=== PATIENT | male | born 1950 | race Caucasian/White ===

== ENCOUNTER → 2021-06-05 | Day surgery (SDC) | payer OTHER ==
[~2021-06-05] MED LIST: ACETAMINOPHEN 500 MG TABLET PO PRN; ALEN70TA71 PO; BALANCED SALT IRRIG SOLN NO.2 500 ML IO ONE; BENZONATATE 100 MG CAPSULE. PO PRN; BRIMONIDINE 0.2% OPHTH SOLUTION 5ML BOTTLE. OS ONE; CEFUROXIME OPHTH 4 MG/0.4 ML SYRINGE. OS ONE; CHONDROIT-SOD-HYALURONATE KIT. OS ONE; IBUPROFEN 200 MG TABLET PO PRN; IPRATRPIUM/ALBUTEROL 0.5/2.5MG 3 ML NEBU. NEB PRN; IV RINGERS SOLUTION,LACTATED 1,000 ML IV SCH; LATA7.5D OU; LIDO/EPI IN BSS OPHTH 2.7 ML SYRINGE. OS ONE; LIDOCAINE 2% JELLY 6ML IN APPLICATOR. ONE; MIDAZOLAM HCL PF 2 MG/2 ML VIAL. IV ONE; MIDAZOLAM HCL PF 2 MG/2 ML VIAL. ONE; ONDANSETRON PF 4 MG/2 ML VIAL. IV PRN; PHENYLEPHRINE 10% OPHTH SOLUTION 5ML BOTTLE. OS PRN; POVIDONE-IODINE 5% OPHTH SOLUTION 30ML BOTTLE. ONE; POVIDONE-IODINE 5% OPHTH SOLUTION 30ML BOTTLE. OS ONE; POVIDONE-IODINE 5% OPHTH SOLUTION 30ML BOTTLE. OS PRN; PROPARACAINE 0.5% OPHTH SOLUTION 15ML BOTTLE. OS ONE; PROPARACAINE 0.5% OPHTH SOLUTION 15ML BOTTLE. OS PRN; TRYPAN BLUE 0.06% INTRAOCULAR 0.5 ML SYRINGE. IO ONE; prednisoLONE ACETATE 1% OPHTH SUSPENSION 5ML BOTTLE. OS ONE
[2021-06-05] MEDS: TROPICAMIDE 1% OPHTH SOLUTION 15ML BOTTLE. OS SCH ×3 (11:22→11:31)
[2021-06-05] MEDS: KETOROLAC TROMETHAMINE 0.5% OPHTH SOLUTION BOTTLE. OS SCH ×2 (11:22→11:27)
[2021-06-05] MEDS: PHENYLEPHRINE 2.5% OPHTH SOLUTION 2ML BOTTLE. OS SCH ×3 (11:22→11:31)
[2021-06-05] MEDS: TOBRAMYCIN 0.3% OPHTH SOLUTION 5ML BOTTLE. OS SCH ×2 (11:22→11:27)
--- NOTE | 2021-06-05 13:06 | PDOC4 ---
SURGEON: Eva Andrews MD Date of Procedure: 06/05/21 PREOP Diagnosis Visually significant cataract: Left Eye OS POSTOP Diagnosis Same PROCEDURE: Phaco w/ posterior chamber IOL: Left Eye OS ANESTHESIA Deep forniceal periocular 2% Lidocaine jelly Sugey/retro bulbar block with 2% Lidocaine with 0.5% Marcaine DESCRIPTION OF PROCEDURE The risks, benefits, and alternatives were discussed with the patient who elected to proceed. Informed consent was obtained in writing and placed in the chart After anesthetizing the eye topically, the patient was taken to the operating room, and the operative eye was prepped and draped in the usual sterile fashion for ocular surgery. A wire lid speculum was placed. A 1-mm clear corneal paracentesis incision was created with the side-port blade at a position three o'clock hours clockwise from the temporal cornea. Then, 1% non-preserved Lidocaine with epinephrine was injected into the anterior chamber followed by viscoelastic. Cotton-tipped applicators were used to stabilize the globe, and a 2.4 mm keratome was used to create a self-sealing incision in clear cornea at the temporal limbus. The Utrata forceps were used to create a continuous curvilinear capsulorrhexis. Balanced saline solution was injected via cannula beneath the capsulorrhexis edge to hydrodissect the lens nucleus and cortex from the lens capsule. The phacoemulsification handpiece and a chopping instrument were then used to remove the lens nucleus. The remaining epinuclear material and cortex were removed with the irrigation/aspiration handpiece. Visc oelastic was used to re-inflate the lens capsule, and the intraocular lens was injected directly into the capsular bag. The corneal wound edges were hydrated with balanced salt solution on a cannula and the irrigation/aspiration handpiece was used to extract the remaining viscoelastic. Cefuroxime 0.1mg/ml / Vigamox 0.5% was injected into the anterior chamber intracamerally. The wounds were inspected and found to be watertight at an appropriate intraocular pressure. Topical antibiotic drops were placed on the corneal surface. LRI: No If Yes, Number [] [place] [] Length [] degrees Depth [] microns Incision [place]: 180 Toric Lens [place] [] Patch/shield with Maxitrol/Tobradex/Erythromycin ointment: Yes No Co-managed patients/postop examination stable for co-management with referring doctor. EBL EBL: None SPECIMANS COLLECTED Specimens Collected: None EVA ANDREWS MD Jun 05, 2021 13:06
[2021-06-05 13:18] VITALS: BP 136/83
== END | disposition home or self-care (01) ==
LOC: SURG 11:03
PROVIDERS: ATTEND Ophthalmology
DX: H25.12 Age-related nuclear cataract, left eye (principal); Z98.890 Other specified postprocedural states; Z98.52 Vasectomy status; Z79.899 Other long term (current) drug therapy
CPT/HCPCS: 66984; J2250; V2632

== ENCOUNTER → 2021-08-21 | Day surgery (SDC) | payer OTHER ==
[~2021-08-21] MED LIST changes: +BRIMONIDINE 0.2% OPHTH SOLUTION 5ML BOTTLE. OD ONE; -BRIMONIDINE 0.2% OPHTH SOLUTION 5ML BOTTLE. OS ONE; +CEFUROXIME OPHTH 4 MG/0.4 ML SYRINGE. OD ONE; -CEFUROXIME OPHTH 4 MG/0.4 ML SYRINGE. OS ONE; +CHONDROIT-SOD-HYALURONATE KIT. OD ONE; -CHONDROIT-SOD-HYALURONATE KIT. OS ONE; +LIDO/EPI IN BSS OPHTH 2.7 ML SYRINGE. OD ONE; -LIDO/EPI IN BSS OPHTH 2.7 ML SYRINGE. OS ONE; -LIDOCAINE 2% JELLY 6ML IN APPLICATOR. ONE; +PHENYLEPHRINE 10% OPHTH SOLUTION 5ML BOTTLE. OD PRN; -PHENYLEPHRINE 10% OPHTH SOLUTION 5ML BOTTLE. OS PRN; +POVIDONE-IODINE 5% OPHTH SOLUTION 30ML BOTTLE. OD ONE; +POVIDONE-IODINE 5% OPHTH SOLUTION 30ML BOTTLE. OD PRN; -POVIDONE-IODINE 5% OPHTH SOLUTION 30ML BOTTLE. ONE; -POVIDONE-IODINE 5% OPHTH SOLUTION 30ML BOTTLE. OS ONE; -POVIDONE-IODINE 5% OPHTH SOLUTION 30ML BOTTLE. OS PRN; +PROPARACAINE 0.5% OPHTH SOLUTION 15ML BOTTLE. OD ONE; +PROPARACAINE 0.5% OPHTH SOLUTION 15ML BOTTLE. OD PRN; -PROPARACAINE 0.5% OPHTH SOLUTION 15ML BOTTLE. OS ONE; -PROPARACAINE 0.5% OPHTH SOLUTION 15ML BOTTLE. OS PRN; -TRYPAN BLUE 0.06% INTRAOCULAR 0.5 ML SYRINGE. IO ONE; +prednisoLONE ACETATE 1% OPHTH SUSPENSION 5ML BOTTLE. OD ONE; -prednisoLONE ACETATE 1% OPHTH SUSPENSION 5ML BOTTLE. OS ONE
[2021-08-21] MEDS: TOBRAMYCIN 0.3% OPHTH SOLUTION 5ML BOTTLE. OD SCH ×2 (09:02→09:05)
[2021-08-21] MEDS: TROPICAMIDE 1% OPHTH SOLUTION 15ML BOTTLE. OD SCH ×3 (09:02→09:11)
[2021-08-21] MEDS: KETOROLAC TROMETHAMINE 0.5% OPHTH SOLUTION BOTTLE. OD SCH ×2 (09:02→09:05)
[2021-08-21] MEDS: PHENYLEPHRINE 2.5% OPHTH SOLUTION 2ML BOTTLE. OD SCH ×3 (09:02→09:11)
--- NOTE | 2021-08-21 10:37 | PDOC4 ---
SURGEON: Eva Andrews MD Date of Procedure: 08/21/21 PREOP Diagnosis Visually significant cataract: Right Eye OD POSTOP Diagnosis Same PROCEDURE: Phaco w/ posterior chamber IOL: Right Eye OD ANESTHESIA Deep forniceal periocular 2% Lidocaine jelly Sugey/retro bulbar block with 2% Lidocaine with 0.5% Marcaine DESCRIPTION OF PROCEDURE The risks, benefits, and alternatives were discussed with the patient who elected to proceed. Informed consent was obtained in writing and placed in the chart After anesthetizing the eye topically, the patient was taken to the operating room, and the operative eye was prepped and draped in the usual sterile fashion for ocular surgery. A wire lid speculum was placed. A 1-mm clear corneal paracentesis incision was created with the side-port blade at a position three o'clock hours clockwise from the temporal cornea. Then, 1% non-preserved Lidocaine with epinephrine was injected into the anterior chamber followed by viscoelastic. Cotton-tipped applicators were used to stabilize the globe, and a 2.4 mm keratome was used to create a self-sealing incision in clear cornea at the temporal limbus. The Utrata forceps were used to create a continuous curvilinear capsulorrhexis. Balanced saline solution was injected via cannula beneath the capsulorrhexis edge to hydrodissect the lens nucleus and cortex from the lens capsule. The phacoemulsification handpiece and a chopping instrument were then used to remove the lens nucleus. The remaining epinuclear material and cortex were removed with the irrigation/aspiration handpiece. V iscoelastic was used to re-inflate the lens capsule, and the intraocular lens was injected directly into the capsular bag. The corneal wound edges were hydrated with balanced salt solution on a cannula and the irrigation/aspiration handpiece was used to extract the remaining viscoelastic. Cefuroxime 0.1mg/ml / Vigamox 0.5% was injected into the anterior chamber intracamerally. The wounds were inspected and found to be watertight at an appropriate intraocular pressure. Topical antibiotic drops were placed on the corneal surface. LRI: No If Yes, Number [] [place] [] Length [] degrees Depth [] microns Incision [place]: 180 Toric Lens [place] [] Patch/shield with Maxitrol/Tobradex/Erythromycin ointment: Yes No Co-managed patients/postop examination stable for co-management with referring doctor. EBL EBL: None SPECIMANS COLLECTED Specimens Collected: None EVA ANDREWS MD Aug 21, 2021 10:37
[2021-08-21 10:38] VITALS: BP 147/94
== END | disposition home or self-care (01) ==
LOC: SURG 08:42
PROVIDERS: ATTEND Ophthalmology
DX: H25.89 Other age-related cataract (principal); Z79.899 Other long term (current) drug therapy; Z72.89 Other problems related to lifestyle; Z98.890 Other specified postprocedural states
CPT/HCPCS: 66984; V2632; J2250